=== PATIENT | male | born 1945 | race Caucasian/White ===

== ENCOUNTER → 2016-09-12 | Day surgery (SDC) | payer MEDICARE, OTHER ==
[~2016-09-12] VITALS: Ht 177.8 cm; Wt 71.2 kg
[~2016-09-12] MED LIST: ADVAIR 250-501 EACH INH; ALEVE220 MG PO; ASPIRIN LO-DOSE81 MG PO; COQ10-VIT E 101 EACH PO; ISOSORBIDE MONO60 MG PO; LIPITOR80 MG PO; LOPRESSOR50 MG PO; LUMIGAN 0.01%2.5 ML OPHTH; PRILOSEC20 MG PO; SYMBICORT 16010.2 GM INH; VITAMIN D1000 UNIT PO
--- NOTE | ~2016-09-12 | HP ---
PATIENT'S NAME: YASMINE CHEEK [facility] AGE: 71 Y [address] ROOM: [place] [id number] LOCATION: GEND ADMIT DATE: 09/12/2016 History & Physical DISCHARGE DATE: FAMILY PHYSICIAN: Fred Woodruff MD ATTENDING PHYSICIAN: Rudy Stephen DATE OF SERVICE: HISTORY OF PRESENT ILLNESS: The patient is a pleasant 71-year-old white male who has presented on the day of procedure for followup of colon polyps. He had colonoscopy several years ago and this exam was done as a followup to that. 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 PAST SURGICAL HISTORY: Past surgical history of complete colonoscopy, cardiac cath procedure, history of diagnostic esophagogastroduodenoscopy, hemorrhoidectomy, and tonsillectomy. FAMILY HISTORY: Significant for family history of coronary artery disease in mother, carcinoma of the stomach in the father, as well as coronary artery disease in the father. SOCIAL HISTORY: He has a remote history of alcohol use. Former smoker. REVIEW OF SYSTEMS: A detailed 10-point review of system was done. It was found to be negative other than what is mentioned in the history of present illness and past medical history. PHYSICAL EXAMINATION: GENERAL: He is alert and awake. Appears to be in no acute distress. CHEST: Clear to auscultation bilaterally. ABDOMEN: Soft and nontender. VITAL SIGNS: Stable and normal. IMPRESSION: The patient with a history of colon polyps, now here for a followup colonoscopy. PATIENT'S NAME: YASMINE CHEEK [facility] AGE: 71 Y [address] ROOM: [place] [address] LOCATION: [facility] ADMIT DATE: 09/12/2016 History & Physical DISCHARGE DATE: FAMILY PHYSICIAN: Fred Woodruff MD ATTENDING PHYSICIAN: Rudy Stephen RECOMMENDATIONS: The procedure of colonoscopy was explained in detail to the patient. All risks, including, but not limited to, bleeding, perforation, and need for surgery was explained. Informed consent was then obtained. ARIF A MD GI STEPHEN/kris /[id number]: [id number] T: [id number] HISTORY & PHYSICAL
== END | disposition disaster alternative care site (69) ==
LOC: GPOC 09-05 10:00 → GEND 06:51 → GPOC 07:00
PROC: 0DBH8ZX Excision of Cecum, Via Natural or Artificial Opening Endoscopic, Diagnostic (ICD-10-PCS; principal; 2016-09-12)
PROC: 0DBK8ZX Excision of Ascending Colon, Via Natural or Artificial Opening Endoscopic, Diagnostic (ICD-10-PCS; 2016-09-12)
DX: D12.0 Benign neoplasm of cecum (principal); D12.2 Benign neoplasm of ascending colon; I25.10 Atherosclerotic heart disease of native coronary artery without angina pectoris; I10 Essential (primary) hypertension; E78.5 Hyperlipidemia, unspecified; G43.909 Migraine, unspecified, not intractable, without status migrainosus; Z79.899 Other long term (current) drug therapy; Z87.891 Personal history of nicotine dependence; Z98.890 Other specified postprocedural states
CPT/HCPCS: J2001; J7030